=== PATIENT | male | born 1960 | race Caucasian/White ===

== ENCOUNTER → 2018-06-09 15:12 | Outpatient (CLI) | payer BC, SELFPAY ==
--- NOTE | 2018-06-09 15:15 | RAD_ITS ---
STUDY: X-RAY - ABDOMEN/PELVIS REASON FOR EXAM: Male, 58 years old. Kidney stones TECHNIQUE: Two AP supine views of the abdomen and pelvis. COMPARISON: None. FINDINGS: Normal visualized lung bases. There is a moderate amount of colonic fecal material. There is no demonstrated free abdominal air. The visualized liver, spleen and kidneys are grossly normal in size and morphology. No definite renal stones noted in either renal shadow. Normal soft tissue structures. There are diffuse degenerative changes of the visualized lumbar spine. IVC filter is noted RAD/Abdomen Single View IMPRESSION: No definite renal stones seen on plain film. Fecal retention. Electronically Signed: Donavon Powell DO at 15:47 EDT Tel , Service support ,
--- NOTE | 2018-06-09 15:51 | EKG12_ITS ---
Test Reason : PREOP Blood Pressure : / mmHG Vent. Rate : 073 BPM Atrial Rate : 073 BPM P-R Int : 140 ms QRS Dur : 098 ms QT Int : 376 ms P-R-T Axes : 061 008 031 degrees QTc Int : 414 ms Normal sinus rhythm Normal ECG Confirmed by WILLAM MASON, MARIUM ([id number]), sports editor CRISTINA MEDEIROS ([id number]) on 06/11/2018 12:53:13 PM Referred By: Los Mcknight Confirmed By:MARIMU QUARLES MD
[2018-06-09 18:06] LABS: Anion Gap 8 (5-15); BUN 21 mg/dL (7-18); BUN/Creat Ratio 15.9 RATIO (10-20); Calcium,Total 8.8 mg/dL (8.5-10.1); Chloride 105 mmol/L (98-107); Creatinine, Serum 1.32 mg/dL (0.70-1.30); EST Glomerular Filtration Rate 59 mL/min (>60); Est Glom Filt Rate - Afr Amer 71 mL/min (>60); Glucose 206 mg/dL (74-106); Potassium 4.2 mmol/L (3.5-5.1); Sodium Level 137 mmol/L (136-145)
[2018-06-09 18:45] LABS: Hematocrit 45.8 % (40-54); Mean Corp Hgb Conc 34.9 g/gl (32-36); Mean Corpuscular Hgb 31.6 pg (27.0-32.0); Mean Corpuscular Volume 90.3 fL (80-94); Mean Platelet Vol. 10.3 fl (6.2-12.0); Platelet Count 193 K/mm3 (150-450); RBC Distribution Width SD 42.6 fl (35.1-43.9); Red Blood Count 5.07 M/mm3 (4.6-6.2); White Blood Count 6.5 K/mm3 (4.4-11.0)
[2018-06-09 19:04] LABS: Scan Indicated on CBC? Y/N NO
== END ==
PROVIDERS: Visit Provider Urology
DX: N20.0 Calculus of kidney (principal)
CPT/HCPCS: 36415; 74018; 80048; 85027; 93005

== ENCOUNTER 2018-06-14 10:23 | Inpatient (IN) | payer BC, SELFPAY ==
[2018-06-14] VITALS (12 sets, daily range): BP systolic 103–136; BP diastolic 56–97; PULSE 84–108; RESP 16–20; TEMP 36.6–38.8; O2SAT 92–98; BMI 32.5
[2018-06-14] MEDS: 0.9% Normal Saline 1,000 ML 1000 ML IV (10:48)
[2018-06-14] MEDS: Morphine 4 MG/ML Syringe IV (10:48)
[2018-06-14 11:02] LABS: Absolute Lymphocyte Count 0.88 X10^3/ul (0.83-4.51); Absolute Neutrophil Count 6.4 X10^3/uL (2.0-7.7); Basophil# 0.02 X10^3/uL; Basophil% 0.3 % (0-1); Hematocrit 46.7 % (40-54); Hemoglobin 16.9 g/dl (13.0-16.5); Lymphocyte # 0.88 X10^3/ul (4.0); Lymphocyte % 11.5 % (19-41); Mean Corp Hgb Conc 36.2 g/gl (32-36); Mean Corpuscular Hgb 31.5 pg (27.0-32.0); Mean Platelet Vol. 9.9 fl (6.2-12.0); Monocyte# 0.32 X10^3/uL; Monocyte% 4.2 % (0-10); Neutrophil # 6.41 X10^3/uL (2.7-7.7); Neutrophil % 83.9 % (47-70); POSITIVE COUNT NO; POSITIVE DIFFERENTIAL NO; POSITIVE MORPHOLOGY NO; Platelet Count 92 K/mm3 (150-450); RBC Distribution Width CV 12.9 % (11.6-14.6); RBC Distribution Width SD 41.2 fl (35.1-43.9); Red Blood Count 5.37 M/mm3 (4.6-6.2); White Blood Count 7.6 K/mm3 (4.4-11.0)
[2018-06-14] MEDS: Ondansetron ODT 4 MG Tablet PO (11:02)
[2018-06-14 11:13] LABS: Anion Gap 10 (5-15); BUN 22 mg/dL (7-18); BUN/Creat Ratio 13.9 RATIO (10-20); Chloride 92 mmol/L (98-107); Creatinine, Serum 1.58 mg/dL (0.70-1.30); EST Glomerular Filtration Rate 48 mL/min (>60); Est Glom Filt Rate - Afr Amer 58 mL/min (>60); Estimated Creatinine Clearance 52.95 ml/min; Glucose 254 mg/dL (74-106); Sodium Level 125 mmol/L (136-145)
--- NOTE | 2018-06-14 11:30 | ED.VISSUMM ---
- ER Visit Summary Date of Service: 06/14/18 Chief Complaint: Right-sided abdominal pain as well as generalized abdominal pain with nausea, vomiting diarrhea History of Present Illness: The patient is a 58 M who was seen last Friday at outside facility and diagnosed with a right renal calculus and a 5 mm right ureteral calculus proximal mid third with hydroureter and nephrosis. He had a follow-up appointment on with Dr. Mcknight. KUB revealed no progression of the stone. He denies fever, chills night sweats. He denies any change in vision, hearing or speech. He complains of bifrontal headache. He does complain of thirst. He denies orthostatic symptoms. Uncertain with his had decreased urine output. Patient denies cough, shortness of breath or difficulty breathing. He denies chest discomfort. He denies any testicular pain. He denies paresthesia, anesthesia motors. He denies trouble with balance. Physical Examination: Vital signs remarkable for an elevated blood pressure 131/71 heart rate 103. BMI is 32.5. HEENT exam is marked for dry mucosa. Heart is rapid and regular without murmur, gallop or rub. Lungs are clear to auscultation. Abdomen slightly distended tympanitic with increased bowel sounds. There is no hepatosplenomegaly. There is no guarding or rebound tenderness. There is no CVA tenderness noted. Neuro exam is nonfocal. Test Results: White count is normal with 84 segs no bands. Electronic panels marked for sodium 125 and chloride 92. Glucose is 254. BUN is 22 with a creatinine 1.58. Urinalysis unremarkable. KUB was obtained and the right ureteral stone has not moved. Emergency Department Course and Treatment: IV was established and he received IV fluids. Because he is diabetic elderly baseline blood work was obtained. Case was discussed with Dr. Mcknight. He requested a KUB. To his knowledge patient's creatinine was normal from outside facility and he was not hyponatremic. Of note patient is not on any diuretics. He states he has been drinking lots of fluids i.e. water to help pass the stone. Treatment Plan: Since patient has elevated creatinine which may be secondary to the obstructing stone hyponatremia secondary to polydipsia and persistent [facility] with consult to Dr. Mcknight Disposition: Med surgical unit Impression: 1. Abdominal pain with nausea, vomiting diarrhea 2. Acute kidney injury 3. Hyponatremia secondary to polydipsia 4. Obstructing right ureteral calculus This note was generated with [employer] dictation software. It may contain incorrect words, spelling, and punctuation that were not noted in review of the chart prior to signing ED Disposition - Plan for ED Patient: Chief Complaint: Flank Pain Referrals: Care Physician,No Primary [Primary Care Provider] -
--- NOTE | 2018-06-14 11:33 | ED.DCSUM_ITS ---
- ER Visit Summary Date of Service: 06/14/18 Chief Complaint: Right-sided abdominal pain as well as generalized abdominal pain with nausea, vomiting diarrhea History of Present Illness: The patient is a 58 M who was seen last Friday at outside facility and diagnosed with a right renal calculus and a 5 mm right ureteral calculus proximal mid third with hydroureter and nephrosis. He had a follow-up appointment on with Dr. Mcknight. KUB revealed no progression of the stone. He denies fever, chills night sweats. He denies any change in vision, hearing or speech. He complains of bifrontal headache. He does complain of thirst. He denies orthostatic symptoms. Uncertain with his had decreased urine output. Patient denies cough, shortness of breath or difficulty breathing. He denies chest discomfort. He denies any testicular pain. He denies paresthesia, anesthesia motors. He denies trouble with balance. Physical Examination: Vital signs remarkable for an elevated blood pressure 131/ 71 heart rate 103. BMI is 32.5. HEENT exam is marked for dry mucosa. Heart is rapid and regular without murmur, gallop or rub. Lungs are clear to auscultation. Abdomen slightly distended tympanitic with increased bowel sounds. There is no hepatosplenomegaly. There is no guarding or rebound tenderness. There is no CVA tenderness noted. Neuro exam is nonfocal. Test Results: White count is normal with 84 segs no bands. Electronic panels marked for sodium 125 and chloride 92. Glucose is 254. BUN is 22 with a creatinine 1.58. Urinalysis unremarkable. KUB was obtained and the right ureteral stone has not moved. Emergency Department Course and Treatment: IV was established and he received IV fluids. Because he is diabetic elderly baseline blood work was obtained. Case was discussed with Dr. Mcknight. He requested a KUB. To his knowledge patient's creatinine was normal from outside facility and he was not hyponatremic. Of note patient is not on any diuretics. He states he has been drinking lots of fluids i.e. water to help pass the stone. Treatment Plan: Since patient has elevated creatinine which may be secondary to the obstructing stone hyponatremia secondary to polydipsia and persistent pain [facility] with consult to Dr. Mcknight Disposition: Med surgical unit Impression: 1. Abdominal pain with nausea, vomiting diarrhea 2. Acute kidney injury 3. Hyponatremia secondary to polydipsia 4. Obstructing right ureteral calculus This note was generated with [employer] dictation software. It may contain incorrect words, spelling, and punctuation that were not noted in review of the chart prior to signing ED Disposition - Plan for ED Patient: Chief Complaint: Flank Pain Referrals: Care Physician,No Primary [Primary Care Provider] -
[2018-06-14 11:52] LABS: Mucous, Urine 0 SEEN /hpf (<or=2+)
[2018-06-14 11:53] LABS: Color, Urine Yellow (Yellow); Glucose, Dipstick 1000 mg/dl (Normal); Ketone-Dipstick Negative (Negative); Leukocyte Esterase-Dipstick 25 /ul (Negative); Nitrite-Dipstick Negative (Negative); Occult Blood-Urine 25 /ul (Negative); Protein-Dipstick 30 mg/dl (Negative); Specific Gravity, Urine 1.015 (1.002-1.030); Urine Bilirubin Dipstick Negative (Negative); Urine Clarity Clear (Clear); Urine Urobilinogen Normal (Normal)
[2018-06-14 12:05] LABS: Bacteria 1+ /hpf (None Seen); Red Blood Cells-Urine 0-5 SEEN /hpf (0-5); Squamous Epithelial Cells - UA 0-5 SEEN /hpf (0-5); White Blood Cells 0-5 SEEN /hpf (0-5)
--- NOTE | 2018-06-14 12:21 | RAD_ITS ---
STUDY: X-RAY - ABDOMEN/PELVIS REASON FOR EXAM: Male, 58 years old. Kidney stone TECHNIQUE: Single AP view of the abdomen / pelvis. COMPARISON: June 09, 2018 FINDINGS: There is an IVC filter. There is a 4 mm stone in the right kidney. There is a calcification overlying the right psoas muscle which may represent a vascular calcification or phlebolith. There is an unremarkable bowel gas pattern. There is no demonstrated free abdominal air. Liver splenic kidneys are obscured. Normal soft tissue structures. There are diffuse degenerative changes of the visualized lumbar spine. RAD/Abdomen Single View (Portable) IMPRESSION: Stable right upper quadrant stones and/or stones. If There is renal colic a CT scan of the abdomen and pelvis without contrast CT suggested. Electronically Signed: Teresa Ohara MD at 14:24 EDT Tel , Service support ,
--- NOTE | 2018-06-14 14:02 | PCM.CONS.U ---
Problem List (1) Right ureteral calculus Status: Acute Reason for Consult Date of Consultation: 06/14/18 Reason for Consultation: Admitted for nausea vomiting diarrhea also has a right ureteral calculi obstructive History of Present Illness: The patient is a 58 year old male patient of mine who called me today had not been doing well for the last several days or appetite poor p.o. intake and also has been having diarrhea and GI upset. KUB today again demonstrates an obstructing stone in the mid ureter. Unclear what is causing the GI upset but certainly could be related to obstructing kidney stone so plan to taken today for cystoscopy and right stent placement to alleviate the obstruction on the right side hopefully this will also alleviate his GI symptoms, but the GI symptoms could also be viral or another etiology. Past Medical History Allergies No Known Allergies Allergy (Verified 06/14/18 10:24) Home Medications: Ambulatory Orders Medication Instructions Recorded Bupropion HCl [Bupropion HCl Sr] 100 mg PO BID 06/14/18 Citalopram [Celexa] 20 mg PO DAILY 06/14/18 Glipizide [Glucotrol Xl] 10 mg PO BID 06/14/18 Losartan Potassium 100 mg PO DAILY 06/14/18 Meloxicam 15 mg PO DAILY 06/14/18 Oxycodone HCl/Acetaminophen 1 tab PO PRN PRN 06/14/18 [Percocet 5-325] Surgical History: noncontributory Psychiatric History: No pertinent psych hx Lives: Spouse/ Significant Other Smoking Status: Never smoker Tobacco Use: Non-smoker Alcohol: None Drugs: None Review of Systems Constitutional: Reports: Chills HEENT: Denies: Head Aches, Sinus Congestion, Sinus Drainage Cardiovascular: Denies: Chest Pain, Palpitations Respiratory: Denies: Cough, Shortness of breath at rest, Sputum production Gastrointestinal: Reports: Abdominal Pain, Diarrhea Genitourinary: Denies: Dysuria Musculoskeletal: Denies: Joint Pain, Joint Tenderness Skin: Denies: Rash, Wounds Neurological: Denies: Numbness, Tingling, Focal weakness Psychiatric: Denies: Anxiety, Depression, Homicidal Ideations, Suicidal Ideations Hematologic/ Lymphatic: Denies: Easy Bruising, Easy Bleeding Physical Exam - Physical Exam Vital Signs Temp 99.6 F H 06/14/18 10:25 Pulse 101 H 06/14/18 13:50 Resp 16 06/14/18 13:50 BP 133/82 H 06/14/18 13:50 Pulse Ox 94 06/14/18 13:50 Intake & Output 06/12/18 06/13/18 06/14/18 23:59 23:59 23:59 Weight: 105.7 kg General: Alert, Oriented x3 HEENT: Atraumatic Oral: Dry Mucosa Neck: Supple Lungs: Normal air movement Cardiovascular: Regular rate Abdomen: Soft - Abdomen is case Laboratory Tests Past 24 Hrs 06/14/18 06/14/18 06/14/18 10:54 10:54 11:45 WBC 7.6 RBC 5.37 Hgb 16.9 H Hct 46.7 MCV 87.0 MCH 31.5 MCHC 36.2 H RDW 12.9 RDW Differential 41.2 Plt Count 92 L MPV 9.9 Immature Gran % (Auto) 0.100 Neut % (Auto) 83.9 H Lymph % (Auto) 11.5 L [place] % (Auto) 4.2 Eos % (Auto) 0.0 Baso % (Auto) 0.3 Absolute Neuts (auto) 6.4 Absolute Lymphs (auto) 0.88 Total Counted Not Reportable Sodium 125 L Potassium 4.0 Chloride 92 L Carbon Dioxide 23.0 Anion Gap 10 BUN 22 H Creatinine 1.58 H Estim Creat Clear Calc 52.95 Est GFR (MDRD) Af Amer 58 L Est GFR (MDRD) Non-Af 48 L BUN/Creatinine Ratio 13.9 Glucose 254 H Calcium 8.0 L Urine Color Yellow Urine Clarity Clear Urine pH 6.0 Ur Specific [place] 1.015 Urine Protein 30 H Urine Glucose (UA) 1000 H Urine Ketones Negative Urine Occult Blood 25 H Urine Nitrite Negative Urine Bilirubin Negative Urine Urobilinogen Normal Ur Leukocyte Esterase 25 H Urine RBC 0-5 SEEN Urine WBC 0-5 SEEN Ur Squamous Epith Cells 0-5 SEEN Urine Bacteria 1+ Urine Mucus 0 SEEN Assessment/Plan All Active Problems Right ureteral calculus (Acute) 58-year-old male with obstructing stone in the right mid ureter, presents to the emergency room after calling me complaining of diarrhea, poor p.o. intake, not doing well, planted taken today to surgery for stent placement on the right side to alleviate the obstruction from the stone.
--- NOTE | 2018-06-14 14:37 | PCM.HP.STD ---
Problem List (1) Right ureteral calculus Status: Acute (2) Hyponatremia Status: Acute (3) HTN (hypertension) Status: Chronic (4) Diabetes Status: Chronic Qualifiers: Diabetes mellitus type: type 2 (5) Depression Status: Chronic History of Present Illness Date of Admission: 06/14/18 Chief Complaint: myalgias The patient is a 58 year old M with a history of type 2 diabetes, DVT and PE postop, status post IVC filter, diverticulitis status post partial colectomy, who presents to the emergency room with chief complaints of all over body aches. He also has right-sided flank pain, nausea, dry heaving, diarrhea. Patient presented on 03 June to [facility] ER and was found to have right-sided renal stones. He was discharged home with pain medications and antibiotics. He has been drinking a lot of water. He represented to Dr. Mcknight's office on Friday of this week. He also had an outpatient CAT scan last Friday. He came to the emergency room today with increased all over body aches. He had a follow-up abdominal film which demonstrated right-sided obstructive ureteral stone with renal colic. He is hyponatremic on his BMP. Dr. Mcknight was consulted and agreed to take the patient for cystoscopy. Currently he is resting comfortably in bed with his symptoms controlled. He denies dysuria or hematuria. [] Past Medical History Past Medical History (Chronic Problems): Chronic Problems HTN (hypertension) (Chronic) Diabetes (Chronic) Depression (Chronic) Allergies No Known Allergies Allergy (Verified 06/14/18 10:24) Home Medications: Ambulatory Orders Medication Instructions Recorded Bupropion HCl [Bupropion HCl Sr] 100 mg PO BID 06/14/18 Citalopram [Celexa] 20 mg PO DAILY 06/14/18 Glipizide [Glucotrol Xl] 10 mg PO BID 06/14/18 Losartan Potassium 100 mg PO DAILY 06/14/18 Meloxicam 15 mg PO DAILY 06/14/18 Oxycodone HCl/Acetaminophen 1 tab PO PRN PRN 06/14/18 [Percocet 5-325] Surgical History: colectomy, rotator cuff repair, - - IVC filter in place Psychiatric History: Depression Lives: Spouse/ Significant Other Smoking Status: Never smoker Tobacco Use: Non-smoker Alcohol: None Drugs: None - *Family History Maternal History Items: Diabetes, Heart Disease Review of Systems Constitutional: Reports: Malaise. Denies: Chills, Fever, Weight Change HEENT: Denies: Head Aches, Sinus Congestion, Sinus Drainage Cardiovascular: Denies: Chest Pain, Palpitations Respiratory: Denies: Cough, Shortness of breath at rest, Sputum production Gastrointestinal: Reports: Abdominal Pain, Diarrhea, Nausea, Vomiting, - - flank pain Genitourinary: Denies: Dysuria Musculoskeletal: Denies: Joint Pain, Joint Tenderness Skin: Denies: Rash, Wounds Neurological: Denies: Numbness, Tingling, Focal weakness Psychiatric: Denies: Anxiety, Depression, Homicidal Ideations, Suicidal Ideations Hematologic/ Lymphatic: Denies: Easy Bruising, Easy Bleeding VTE Information - Inpt Only VTE Present on Admission: No VTE Pharm Prophylaxis ordered?: Yes Patient Problems: Active and Suspected Problems Right ureteral calculus (Acute) Hyponatremia (Acute) - Physical Exam General: Alert, Oriented x3, Cooperative HEENT: Atraumatic, PERRLA, EOMI, Normocephalic Neck: Supple, No JVD, Negative Carotid Bruits Lungs: Clear to auscultation, Normal air movement Cardiovascular: Regular rate, No murmurs Abdomen: Bowel Sounds Present, Soft, Non Tender Extremities: No edema, Capillary Refill Less than 3 Seconds Skin: No rashes, No breakdown Musculoskeletal: No Tenderness to Palpation of Joints or Extremities Neurological: Cranial nerves II-XII grossly intact Psych/Mental Status: Normal Affect, Appropriate, Alert and oriented to time, place, person, mood and affect Vital Signs Temp Pulse Resp BP Pulse Ox 99.5 F H 101 H 17 103/56 L 95 06/14/18 14:08 06/14/18 14:08 06/14/18 14:08 06/14/18 14:08 06/14/18 14:08 Oxygen Delivery Method Room Air Weight: 105.7 kg Body Mass Index (BMI) 32.5 Laboratory Tests Past 24 Hrs 06/14/18 06/14/18 06/14/18 10:54 10:54 11:45 WBC 7.6 RBC 5.37 Hgb 16.9 H Hct 46.7 MCV 87.0 MCH 31.5 MCHC 36.2 H RDW 12.9 RDW Differential 41.2 Plt Count 92 L MPV 9.9 Immature Gran % (Auto) 0.100 Neut % (Auto) 83.9 H Lymph % (Auto) 11.5 L [place] % (Auto) 4.2 Eos % (Auto) 0.0 Baso % (Auto) 0.3 Absolute Neuts (auto) 6.4 Absolute Lymphs (auto) 0.88 Total Counted Not Reportable Sodium 125 L Potassium 4.0 Chloride 92 L Carbon Dioxide 23.0 Anion Gap 10 BUN 22 H Creatinine 1.58 H Estim Creat Clear Calc 52.95 Est GFR (MDRD) Af Amer 58 L Est GFR (MDRD) Non-Af 48 L BUN/Creatinine Ratio 13.9 Glucose 254 H Calcium 8.0 L Urine Color Yellow Urine Clarity Clear Urine pH 6.0 Ur Specific [place] 1.015 Urine Protein 30 H Urine Glucose (UA) 1000 H Urine Ketones Negative Urine Occult Blood 25 H Urine Nitrite Negative Urine Bilirubin Negative Urine Urobilinogen Normal Ur Leukocyte Esterase 25 H Urine RBC 0-5 SEEN Urine WBC 0-5 SEEN Ur Squamous Epith Cells 0-5 SEEN Urine Bacteria 1+ Urine Mucus 0 SEEN Assessment/Plan All Active Problems Right ureteral calculus (Acute) Hyponatremia (Acute) 1. Acute right ureteral stone - Pt being taken for cystoscopy now. Ancef. Dr. Mcknight on consult. Tachy, afebrile. No WBC. UA neg for infection. 2. Hyponatremia - suspect 2/2 increased PO intake. Will give IV fluids. Mildly elevated Cr, may be underlying CKD. Hold meloxicam. 3. Depression - home meds 4. DMt2 - ssi, hold orals DVT ppx: heparin DC planning: reevaluate in AM with BMP. This patient was seen by Luis E Romero PA-C under the supervision of Doctor Weldon.
[2018-06-14] MEDS: Lidocaine Jelly 2% 20 ML Syringe (URO-JET) 20 APPLIC (15:00)
--- NOTE | 2018-06-14 15:13 | PCM.OPRPT ---
Problem List (1) Right ureteral calculus Status: Acute Report of Operation Date of Procedure: 06/14/18 Pre-Operative Diagnosis: Right ureteral calculi Post-Operative Diagnosis: Same Surgery/Procedure Performed:: Cystoscopy, right retrograde pyelogram right stent placement Description of Surgical Findings:: 58-year-old male taken back to the operating room at the smooth induction of anesthesia he was placed supine on the table with the legs in stirrups in the dorsolithotomy position, the penis and testicles were prepped and draped in usual sterile fashion, went into the bladder with a 21 [place] rigid cystourethroscope, advanced a wire up into the right kidney over this prevents Pollack catheter performed a retrograde Polygram, stone was in the mid ureter, I then advanced a wire up into the kidney, with the wire place a stent 6 [place] by 2 cm stent stent coiled in the kidney bladder good position, I then let the bladder drain the patient anesthetic was reversed taken at the PACU in good condition. Type of Anesthesia:: Local MAC Drains: stent right side - Admit VTE Documentation VTE Present on Admission: No VTE Mechan Device Prophylaxis: SCD's
[2018-06-14] MEDS: Cefazolin 1 GM/50 ML BAG IV ×2 (17:15→21:17)
[2018-06-14 17:16] LABS: Bedside Glucose 243 mg/dL (70-110)
[2018-06-14] MEDS: Insulin Lispro 100 UNIT/ML INSULN.PEN SC ×2 (17:58→21:29)
[2018-06-14] MEDS: 0.9% Normal Saline 1,000 ML 150 ML IV (19:11)
[2018-06-14] MEDS: buPROPion (SR) 100 MG TABLET.SA PO (21:18)
[2018-06-14] MEDS: Heparin Injection (Vial) 5,000 UNIT/ML VIAL 5000 UNIT SC (21:30)
[2018-06-14 21:40] LABS: Bedside Glucose 193 mg/dL (70-110)
[2018-06-15 00:37] VITALS: BP 110/63; PULSE 82; RESP 18; TEMP 36.6; O2SAT 95
[2018-06-15] MEDS: 0.9% Normal Saline 1,000 ML 150 ML IV (02:07)
[2018-06-15] MEDS: Cefazolin 1 GM/50 ML BAG IV (05:26)
[2018-06-15 05:28] VITALS: BP 101/63; PULSE 63; RESP 18; TEMP 36.5; O2SAT 96
[2018-06-15 05:52] LABS: Absolute Lymphocyte Count 1.95 X10^3/ul (0.83-4.51); Absolute Neutrophil Count 3.5 X10^3/uL (2.0-7.7); Basophil# 0.04 X10^3/uL; Basophil% 0.6 % (0-1); Eosinophil# 0.04 X10^3/uL; Eosinophils% 0.6 % (0-5); Hematocrit 40.7 % (40-54); Hemoglobin 14.3 g/dl (13.0-16.5); Lymphocyte # 1.95 X10^3/ul (4.0); Lymphocyte % 29.9 % (19-41); Mean Corp Hgb Conc 35.1 g/gl (32-36); Mean Corpuscular Hgb 30.8 pg (27.0-32.0); Mean Corpuscular Volume 87.7 fL (80-94); Mean Platelet Vol. 10.2 fl (6.2-12.0); Monocyte# 0.97 X10^3/uL; Monocyte% 14.9 % (0-10); Neutrophil % 53.7 % (47-70); Platelet Count 101 K/mm3 (150-450); RBC Distribution Width SD 41.8 fl (35.1-43.9); Red Blood Count 4.64 M/mm3 (4.6-6.2); White Blood Count 6.5 K/mm3 (4.4-11.0)
[2018-06-15 05:53] LABS: POSITIVE COUNT NO; POSITIVE DIFFERENTIAL NO; POSITIVE MORPHOLOGY NO
[2018-06-15 06:26] LABS: Anion Gap 6 (5-15); BUN 12 mg/dL (7-18); BUN/Creat Ratio 16.3 RATIO (10-20); Calcium,Total 7.5 mg/dL (8.5-10.1); Chloride 102 mmol/L (98-107); Creatinine, Serum 0.74 mg/dL (0.70-1.30); EST Glomerular Filtration Rate 115 mL/min (>60); Est Glom Filt Rate - Afr Amer 139 mL/min (>60); Estimated Creatinine Clearance 113.06 ml/min; Glucose 157 mg/dL (74-106); Potassium 3.5 mmol/L (3.5-5.1); Sodium Level 135 mmol/L (136-145)
[2018-06-15] MEDS: Heparin Injection (Vial) 5,000 UNIT/ML VIAL 5000 UNIT SC (06:40)
[2018-06-15] MEDS: Insulin Lispro 100 UNIT/ML INSULN.PEN SC (06:40)
[2018-06-15 06:50] LABS: Bedside Glucose 161 mg/dL (70-110)
--- NOTE | 2018-06-15 08:35 | PCM.DC ---
- Discharge Diagnoses Current Active Problems: Current Active and Chronic Problems (1) Right ureteral calculus, obstructive (2) Acute Kidney Injury (3) Hyponatremia, Hypovolemic secondary to #1 with GI losses (nausea, emesis, diarrhea) (4) Hypertension (5) Diabetes mellitus type II (6) Hypertension (7) Depression (8) History of Post-operative PE prior s/p IVC Filter (9) History of Diverticulitis s/p partial colectomy (10) Obesity You will use the following diet at home:: Calorie/Carbohydrate Controlled (specify 1200, 1400, etc) - 1800 ADA, cardiac diet. Your food should be the consistency of: Regular Your liquids should be the consistency of: Regular/Thin Discharge Activity: - - Avoid any activity which may compromise stent placement. Planned OR Friday per discussion with Urology. May resume sexual activity in: - - Defer until cleared per Urology. Weight Bearing Status: Weight bearing as tolerated Call your doctor if you observe: Fever of 101 or Higher, Inability to urinate, Inability to have a bowel movement, Shortness of breath, Dizziness, Fainting spells, Chest pain, Uncontrolled pain Instructions: Understanding Kidney Stones Additional Instructions: Given recent intervention, IV fluids your renal function has improved. Please be cautious about immediate restart of mobic. Have repeat basic metabolic panel with your primary care physician. Maintain appropriate oral hydration. Allergies/Adverse Reactions: Allergies No Known Allergies Allergy (Verified 06/14/18 10:24) Medications to take at Discharge Bupropion HCl [Bupropion HCl Sr] 100 mg PO BID 06/14/18 Citalopram [Celexa] 20 mg PO DAILY 06/14/18 Glipizide [Glucotrol Xl] 10 mg PO BID 06/14/18 Losartan Potassium 100 mg PO DAILY 06/14/18 Meloxicam 15 mg PO DAILY 06/14/18 Oxycodone HCl/Acetaminophen [Percocet 5-325] 1 tab PO PRN PRN 06/14/18 Primary Care Physician: Care Physician,No Primary [Primary Care Provider] - Please follow up with your Primary Care Physician in: Please establish with primary care, follow-up 3-5 days. Test Results: Test results from this visit will be discussed in further detail at your follow-up appointment, if applicable. Please Follow Up With: Los Mcknight MD When: Please continue planned operative intervention Friday, already arranged. Proposed Discharge Date: 06/15/18
--- NOTE | 2018-06-15 08:42 | DCINST_ITS ---
- Discharge Diagnoses Current Active Problems: Current Active and Chronic Problems (1) Right ureteral calculus, obstructive (2) Acute Kidney Injury (3) Hyponatremia, Hypovolemic secondary to #1 with GI losses (nausea, emesis, diarrhea) (4) Hypertension (5) Diabetes mellitus type II (6) Hypertension (7) Depression (8) History of Post-operative PE prior s/p IVC Filter (9) History of Diverticulitis s/p partial colectomy (10) Obesity You will use the following diet at home:: Calorie/Carbohydrate Controlled ( specify 1200, 1400, etc) - 1800 ADA, cardiac diet. Your food should be the consistency of: Regular Your liquids should be the consistency of: Regular/Thin Discharge Activity: - - Avoid any activity which may compromise stent placement. Planned OR Friday per discussion with Urology. May resume sexual activity in: - - Defer until cleared per Urology. Weight Bearing Status: Weight bearing as tolerated Call your doctor if you observe: Fever of 101 or Higher, Inability to urinate, Inability to have a bowel movement, Shortness of breath, Dizziness, Fainting spells, Chest pain, Uncontrolled pain Instructions: Understanding Kidney Stones Additional Instructions: Given recent intervention, IV fluids your renal function has improved. Please be cautious about immediate restart of mobic. Have repeat basic metabolic panel with your primary care physician. Maintain appropriate oral hydration. Allergies/Adverse Reactions: Allergies No Known Allergies Allergy (Verified 06/14/18 10:24) Medications to take at Discharge Bupropion HCl [Bupropion HCl Sr] 100 mg PO BID 06/14/18 Citalopram [Celexa] 20 mg PO DAILY 06/14/18 Glipizide [Glucotrol Xl] 10 mg PO BID 06/14/18 Losartan Potassium 100 mg PO DAILY 06/14/18 Meloxicam 15 mg PO DAILY 06/14/18 Oxycodone HCl/Acetaminophen [Percocet 5-325] 1 tab PO PRN PRN 06/14/18 Primary Care Physician: Care Physician,No Primary [Primary Care Provider] - Please follow up with your Primary Care Physician in: Please establish with primary care, follow-up 3-5 days. Test Results: Test results from this visit will be discussed in further detail at your follow- up appointment, if applicable. Please Follow Up With: Los Mcknight MD When: Please continue planned operative intervention Friday, already arranged. Proposed Discharge Date: 06/15/18
--- NOTE | 2018-06-15 08:48 | DS.PCM_ITS ---
Discharge Date and Diagnosis - Problem List Patient Problems: Active and Suspected Problems Right ureteral calculus (Acute) Hyponatremia (Acute) Date of Admission: 06/14/18 Date of Discharge: 06/15/18 - Primary Discharge Diagnosis Active and Suspected Problems (1) Right ureteral calculus, obstructive (2) Acute Kidney Injury (3) Hyponatremia, Hypovolemic secondary to #1 with GI losses (nausea, emesis, diarrhea) (4) Hypertension (5) Diabetes mellitus type II (6) Hypertension (7) Depression (8) History of Post-operative PE prior s/p IVC Filter (9) History of Diverticulitis s/p partial colectomy (10) Obesity - Secondary Discharge Diagnosis Chronic Problems HTN (hypertension) (Chronic) Diabetes (Chronic) Depression (Chronic) Hospital Course and Treatment Dr. Mcknight Urology Operations: - - OR 06/14/18 Dr. Roxanna bunch/ Cystoscopy, right retrograde pyelogram right stent placement for Right ureteral calculi. Procedures: EKG Summary of Care Provided: The patient is a 58 y/o M w/ PMHx: HTN, Depression, Obesity, Diabetes mellitus type II, History of Post-operative PE prior s/p IVC Filter, History of Diverticulitis s/p partial colectomy who presented to the [facility] ED on 06/14/18 with history of ongoing right-sided flank pain, nausea, dry heaving and loose stools following recent diagnosis on June 03 at [facility] with right sided renal stones with at that time pain regimen administration as well as antibiotic therapy with planned outpatient operative intervention. Given patient ongoing symptoms and dehydration he presented to the ED with at that time evidence of acute kidney injury with concern for obstructive right ureteral calculus in addition to hyponatremia secondary recent GI losses. Patient was admitted, hydrated, urology consulted and patient underwent 06/14/[address] Roxanna bunch/ Cystoscopy, right retrograde pyelogram right stent placement for Right ureteral calculi. UA was not marked with no indication of concurrent UTI. Patient's CBC remained unremarkable. Patient BMP improved with resolution of AZUL and improvement of hyponatremia. Patient discharged to home in stable, improved condition per discussion with Dr. Zhneg with planned operative intervention the following Friday. DAY OF DISCHARGE PROGRESS NOTE: Subjective: Patient without acute event overnight per self and nursing report. Patient denies fever, chills, nausea, emesis, abdominal pain, chest pain or dyspnea. Patient notes evening prior following stent placement he initially only had minimal UOP but within 1 minute of trying had notable UOP and only had mild initial discomfort. Patient agreeable to discharge to home. Patient will be discharged with follow-up with primary care physician within 3-5 days in addition to as noted planned operative intervention w/ Dr. Mcknight Friday. Objective: T 97.7, heart rate 63, BP 101/63, respiratory rate 18, 96% on room air. Physical Examination: General: awake, alert, oriented x 3 and cooperative, seated upright in the bed, NAD. Skin: normal color, turgor, no icterus, cyanosis. HEENT: AT/NC, EOMI, PERRLA, improved MMM. Lungs: CTA bilaterally, moderate effort, mild decrease BL bases, no rales, ronchi or wheezing; no CVA TTP. Heart: Regular rate and rhythm; no gallop, rub audible. Abdomen: soft, obese, no CVA TTP/NTTP, ND, normal BS. Extremities: no cyanosis, clubbing, or edema. Neurological: patient awake, alert, oriented x 3; cognitive function appears intact upon questioning,; pupils equally reactive to light and accomodation; cranial nerves II-XII grossly normal, moving all 4 extremities, strength improved, mildly globally decreased. Psychiatric: affect appears normal, no acute evidence of depressive or anxiety feelings. Assessment and Plan: Please see hospital summary above. Discharge Activity: - - Avoid any activity which may compromise stent placement. Planned OR Friday per discussion with Urology. May resume sexual activity in: - - Defer until cleared per Urology. Weight Bearing Status: Weight bearing as tolerated Call your doctor if you observe: Fever of 101 or Higher, Inability to urinate, Inability to have a bowel movement, Shortness of breath, Dizziness, Fainting spells, Chest pain, Uncontrolled pain Home Medications: Medications to take at Discharge Bupropion HCl [Bupropion HCl Sr] 100 mg PO BID 06/14/18 Citalopram [Celexa] 20 mg PO DAILY 06/14/18 Glipizide [Glucotrol Xl] 10 mg PO BID 06/14/18 Losartan Potassium 100 mg PO DAILY 06/14/18 Meloxicam 15 mg PO DAILY 06/14/18 Oxycodone HCl/Acetaminophen [Percocet 5-325] 1 tab PO PRN PRN 06/14/18 Primary Care Physician: Care Physician,No Primary [Primary Care Provider] - Please follow up with your Primary Care Physician in: Please establish with primary care, follow-up 3-5 days. Please Follow Up With: Los Mcknight MD When: Please continue planned operative intervention Friday, already arranged. Patient Instructions: Understanding Kidney Stones Disposition: Home Minutes spent on discharge:: 35 Patient Condition:: Fair Medical Necessity - Tobacco Use Smoking Status: Former smoker Tobacco Use: Non-smoker Meaningful Use Info Meaningful Use Diagnoses (Choose all that apply): None applicable Code Visit Inpatient E&M: 50001 Disch Hosp
[2018-06-15] MEDS: Losartan Potassium 100 MG Tablet PO (09:43)
[2018-06-15] MEDS: Citalopram 20 MG Tablet PO (09:43)
[2018-06-15] MEDS: buPROPion (SR) 100 MG TABLET.SA PO (09:43)
[2018-06-15 09:55] VITALS: BP 107/61; PULSE 62; RESP 18; TEMP 36.5; O2SAT 94
--- NOTE | 2018-06-15 10:29 | CASEMGMT ---
RN DAKOTAH Face to Face with patient for initial transition planning/care coordination assessment. RN CM introduced self and role at [facility]. Patient sitting in chair, alert and oriented. Patient willing to participate in assessment and is able to answer all questions appropriately. Care providers, pharmacy, and demographics verified. See link attached. Patient wishes to discharge home, denies need for home health at this time. Patient states he has no further needs or concerns at this time. CM to follow for discharge planning needs that may arise. Disposition Plan: Patient to discharge home with family support and follow-up plans in place.
== END 2018-06-15 10:49 | disposition home or self-care (01) | DRG 694 ==
LOC: ED 10:58 → SDC 14:07 → MS3 06-15 06:20
PROVIDERS: Urology; Admitting Provider Internal Medicine; Emergency Provider Emergency Medicine; Visit Provider Family Medicine
PROC: 0T768DZ Dilation of Right Ureter with Intraluminal Device, Via Natural or Artificial Opening Endoscopic (ICD-10-PCS; CPT 52332; principal; 2018-06-14 15:00)
DX: N13.2 Hydronephrosis with renal and ureteral calculous obstruction (principal); E87.1 Hypo-osmolality and hyponatremia; F32.9 Major depressive disorder, single episode, unspecified; N17.9 Acute kidney failure, unspecified; I10 Essential (primary) hypertension; E11.9 Type 2 diabetes mellitus without complications; E66.9 Obesity, unspecified; Z68.32 Body mass index [BMI] 32.0-32.9, adult; Z87.891 Personal history of nicotine dependence; Z79.84 Long term (current) use of oral hypoglycemic drugs; E86.1 Hypovolemia; Z86.711 Personal history of pulmonary embolism; Z90.49 Acquired absence of other specified parts of digestive tract; Z87.19 Personal history of other diseases of the digestive system; Z95.828 Presence of other vascular implants and grafts
CPT/HCPCS: 36415; 74018; 76000; 80048; 81001; 82962; 85025; 99282; J7030; J7120; C1769; J2405